=== PATIENT | female | born 1970 | race Two or more races ===

== ENCOUNTER 2022-06-06 10:00 | Inpatient (IN) | payer OTHER ==
[2022-06-27] MEDS ORDERED: [UNRECOGNIZED DRUG - OTHER] PO (10:20)
[2022-06-27] MEDS ORDERED: ALDACTONE25 MG PO (10:20)
[2022-06-27] MEDS ORDERED: WELLBUTRIN XL300 MG PO (10:21)
[2022-06-27] MEDS ORDERED: SEROQ PO (10:22)
[2022-06-27] MEDS ORDERED: [UNRECOGNIZED DRUG - OTHER] PO (10:22)
[2022-06-27] MEDS ORDERED: SYNTH PO (10:22)
[2022-06-27] MEDS ORDERED: ZYRTEC10 M3 PO (10:23)
[2022-06-27] MEDS ORDERED: SINGULAIR10 MG PO (10:23)
[2022-07-01] MEDS ORDERED: ALPRAZOLAM2 MG (08:04)
[2022-07-01] MEDS ORDERED: CLONAZEPAM2 MG (08:04)
[2022-07-01] MEDS ORDERED: SYNTHROID75 MCG (08:04)
[2022-07-01] MEDS ORDERED: FUROSEMIDE40 MG (08:04)
[2022-07-01] MEDS ORDERED: ENALAPRIL MALE2.5 MG (08:04)
[2022-07-01] MEDS ORDERED: METOPROLOL SUC200 MG (08:04)
[2022-07-01] MEDS ORDERED: XARELTO10 M1 (08:05)
[2022-07-01] MEDS ORDERED: PANTOPRAZOLE SO40 MG (08:05)
[2022-07-01] MEDS ORDERED: IBUPROFEN800 MG (08:05)
[2022-07-01] MEDS ORDERED: DICLOFENAC SOD100 GM (08:05)
[2022-07-01] MEDS ORDERED: QUETIAPINE FUM150 MG (08:05)
[2022-07-01] MEDS ORDERED: OMEPRAZOLE40 MG (08:05)
[2022-07-08] MEDS ORDERED: ULTRACET PO (09:27)
== END 2022-07-08 15:23 | disposition home or self-care (01) | DRG 329 ==
LOC: O/R 07-01 05:30 → SURG 07-01 05:30 → SURH 07-01 16:44 → SURG 07-01 16:50
PROVIDERS: ADMIT Surgery; ATTEND Surgery
PROC: 0DBP4ZZ Excision of Rectum, Percutaneous Endoscopic Approach (ICD-10-PCS; 2022-07-01)
PROC: 0DTN4ZZ Resection of Sigmoid Colon, Percutaneous Endoscopic Approach (ICD-10-PCS; 2022-07-01)
PROC: 07BB4ZZ Excision of Mesenteric Lymphatic, Percutaneous Endoscopic Approach (ICD-10-PCS; 2022-07-01)
PROC: 0DJD8ZZ Inspection of Lower Intestinal Tract, Via Natural or Artificial Opening Endoscopic (ICD-10-PCS; 2022-07-01)
PROC: 4A12X4Z Monitoring of Cardiac Electrical Activity, External Approach (ICD-10-PCS; 2022-07-01)
PROC: 0D1B4Z4 Bypass Ileum to Cutaneous, Percutaneous Endoscopic Approach (ICD-10-PCS; principal; 2022-07-01 08:15)
PROC: B24BZZZ Ultrasonography of Heart with Aorta (ICD-10-PCS; 2022-07-03)
PROC: B54DZZZ Ultrasonography of Bilateral Lower Extremity Veins (ICD-10-PCS; 2022-07-03)
DX: C20 Malignant neoplasm of rectum (principal); T81.19XA Other postprocedural shock, initial encounter; K62.5 Hemorrhage of anus and rectum; D62 Acute posthemorrhagic anemia; R59.0 Localized enlarged lymph nodes; D69.6 Thrombocytopenia, unspecified; Z20.822 Contact with and (suspected) exposure to COVID-19; I11.0 Hypertensive heart disease with heart failure; I50.9 Heart failure, unspecified; Z86.711 Personal history of pulmonary embolism; Z95.810 Presence of automatic (implantable) cardiac defibrillator

== ENCOUNTER 2022-07-15 12:36 | Inpatient (IN) | payer OTHER ==
[~2022-07-15] VITALS: Ht 152.4 cm; Wt 117.9 kg
[~2022-07-15 12:36] MED LIST: ALDACTONE25 MG PO; ALPRAZOLAM2 MG; CLONAZEPAM2 MG; DICLOFENAC SOD100 GM; ENALAPRIL MALE2.5 MG; FUROSEMIDE40 MG; IBUPROFEN800 MG; METOPROLOL SUC200 MG; OMEPRAZOLE40 MG; PANTOPRAZOLE SO40 MG; QUETIAPINE FUM150 MG; SEROQ PO; SINGULAIR10 MG PO; SYNTH PO; SYNTHROID75 MCG; ULTRACET PO; WELLBUTRIN XL300 MG PO; XARELTO10 M1; ZYRTEC10 M3 PO; [UNRECOGNIZED DRUG - OTHER] PO; [UNRECOGNIZED DRUG - OTHER] PO
[2022-08-09] MEDS ORDERED: LOPERAMIDE2 M1 PO (16:55)
== END 2022-08-09 21:37 | disposition home or self-care (01) | DRG 871 ==
LOC: ER 12:36 → ICU-2 21:42 → ICU 07-16 04:07 → MEDI 07-20 14:38
PROVIDERS: ADMIT Surgery; ATTEND Surgery
PROC: 0BH17EZ Insertion of Endotracheal Airway into Trachea, Via Natural or Artificial Opening (ICD-10-PCS; principal; 2022-07-15)
PROC: 5A1945Z Respiratory Ventilation, 24-96 Consecutive Hours (ICD-10-PCS; 2022-07-15)
PROC: 4A12X4Z Monitoring of Cardiac Electrical Activity, External Approach (ICD-10-PCS; 2022-07-15)
PROC: 0D9670Z Drainage of Stomach with Drainage Device, Via Natural or Artificial Opening (ICD-10-PCS; 2022-07-15)
PROC: B020ZZZ Computerized Tomography (CT Scan) of Brain (ICD-10-PCS; 2022-07-15)
PROC: B24BYZZ Ultrasonography of Heart with Aorta using Other Contrast (ICD-10-PCS; 2022-07-15)
PROC: 02HV33Z Insertion of Infusion Device into Superior Vena Cava, Percutaneous Approach (ICD-10-PCS; 2022-07-16)
PROC: BW2110Z Computerized Tomography (CT Scan) of Abdomen and Pelvis using Low Osmolar Contrast, Unenhanced and Enhanced (ICD-10-PCS; 2022-07-18)
PROC: 30243N1 Transfusion of Nonautologous Red Blood Cells into Central Vein, Percutaneous Approach (ICD-10-PCS; 2022-07-26)
PROC: 8E0ZXY6 Isolation (ICD-10-PCS; 2022-07-31)
DX: A41.9 Sepsis, unspecified organism (principal); J96.00 Acute respiratory failure, unspecified whether with hypoxia or hypercapnia; R65.21 Severe sepsis with septic shock; R57.1 Hypovolemic shock; N39.0 Urinary tract infection, site not specified; I13.0 Hypertensive heart and chronic kidney disease with heart failure and stage 1 through stage 4 chronic kidney disease, or unspecified chronic kidney disease; C19 Malignant neoplasm of rectosigmoid junction; K94.13 Enterostomy malfunction; I50.22 Chronic systolic (congestive) heart failure; I43 Cardiomyopathy in diseases classified elsewhere; N17.9 Acute kidney failure, unspecified; Z16.12 Extended spectrum beta lactamase (ESBL) resistance; B96.1 Klebsiella pneumoniae [K. pneumoniae] as the cause of diseases classified elsewhere; I95.9 Hypotension, unspecified; D64.9 Anemia, unspecified; R33.9 Retention of urine, unspecified; E03.9 Hypothyroidism, unspecified; Z95.810 Presence of automatic (implantable) cardiac defibrillator; R53.81 Other malaise

== ENCOUNTER 2023-09-29 06:15 | Day surgery (SDC) | payer OTHER ==
[2023-09-12 08:53] LABS: HEMOGLOBIN 13.7 g/dL (12.0-15.00); MEAN CELL VOLUME 92.2 fL (80.00-100.00); MEAN CORPUSCULAR HEMOGLOBIN 31.6 pg (27.00-32.0); MEAN CORPUSCULAR HGB CONC 34.3 g/dl (32.0-36.0); PLATELET COUNT 194 K/uL (150-450); RED BLOOD COUNT 4.33 M/uL (4.00-6.00); RED CELL DISTRIBUTION WIDTH 16.5 % (11.5-14.5)
[2023-09-12 09:36] LABS: CALCIUM 9.4 mg/dL (8.5-10.1); CREATININE SERUM 1.14 mg/dL (0.55-1.02); GFR 50.05; POTASSIUM 3.97 mEq/L (3.5-5.1)
[~2023-09-29 06:15] MED LIST changes: +LOPERAMIDE2 M1 PO
== END 2023-09-29 12:10 | disposition home or self-care (01) ==
LOC: AMB-ENDOS 06:15
PROVIDERS: ATTEND Surgery
DX: C20 Malignant neoplasm of rectum (principal); K62.5 Hemorrhage of anus and rectum; Z88.0 Allergy status to penicillin; Z88.6 Allergy status to analgesic agent; Z20.822 Contact with and (suspected) exposure to COVID-19; K64.8 Other hemorrhoids

== ENCOUNTER 2023-10-23 07:45 | Inpatient (IN) | payer OTHER ==
[~2023-10-23] VITALS: Ht 165.1 cm; Wt 111.1 kg
[2023-10-23 08:54] LABS: HEMATOCRIT 41.5 % (36.0-45.00); HEMOGLOBIN 13.9 g/dL (12.0-15.00); MEAN CELL VOLUME 89.5 fL (80.00-100.00); MEAN CORPUSCULAR HEMOGLOBIN 29.9 pg (27.00-32.0); MEAN CORPUSCULAR HGB CONC 33.4 g/dl (32.0-36.0); PLATELET COUNT 219 K/uL (150-450); RED BLOOD COUNT 4.64 M/uL (4.00-6.00); RED CELL DISTRIBUTION WIDTH 14.9 % (11.5-14.5)
[2023-10-23 08:55] LABS: URINE APPEARANCE Cloudy; URINE BILIRRUBIN Negative (NEGATIVE); URINE BLOOD Negative; URINE COLOR Yellow; URINE GLUCOSE Negative (NEGATIVE); URINE LEUKOCYTE Trace; URINE NITRATE Negative; URINE PROTEIN Trace (NEGATIVE); URINE UROBILINOGEN 0.2 E.U./dl
[2023-10-23 09:00] LABS: URINE EPITHELIAL CELLS 168.5 uL (0.0-38.8); URINE RBC 22.9 uL (0.0-20.8)
[2023-10-23 09:08] LABS: URINE BACTERIA > 9821.5 uL (0.0-1933)
[2023-10-23 09:22] LABS: INR 1.04; PARTIAL THROMBOPLASTIN TIME 27.6 SECONDS (22.0-34.0); PROTHROMBIN TIME 10.9 SECONDS (9.0-11.5)
[2023-10-23 09:30] LABS: ALBUMIN 4.3 gm/dL (3.4-5.0); BILIRUBIN TOTAL 2.07 mg/dL (0.3-1.2); CALCIUM 9.7 mg/dL (8.5-10.1); CREATININE SERUM 1.11 mg/dL (0.55-1.02); GFR 51.62; GLOBULINA 3.3 G/DL (2.4-3.5); POTASSIUM 3.82 mEq/L (3.5-5.1); TOTAL PROTEIN 7.6 gm/dL (6.4-8.2)
[2023-10-23 09:51] LABS: URINE CRYSTALS MODERATE /HPF
[2023-10-27] MEDS ORDERED: METRONIDAZOLE/SODIUM CHLORIDE 500 MG/100 ML PIGGYBACK IV ONE ×2 (06:47→08:30)
[2023-10-27] MEDS ORDERED: CHLORHEXIDINE GLUCONATE 120 ML BOTTLE TOP ONE ×2 (07:56→08:30)
[2023-10-27] MEDS ORDERED: levoFLOXacin IN DEXTROSE 5 % 5 MG/ML PIGGYBAG IV ONE (08:30)
[2023-10-27] MEDS ORDERED: LIDOCAINE HCL/EPINEPHRINE 20 ML VIAL IJ ONE (08:33)
[2023-10-27] MEDS ORDERED: BUPIVACAINE HCL/PF 0.5% 30ML ML ONE (08:33)
[2023-10-27] MEDS ORDERED: POVIDONE-IODINE 118 ML BOTT TOP ONE (08:47)
[2023-10-27] MEDS ORDERED: LACTOBACILLUS ACIDOPHILUS 1 CAP CAP PO SCH (09:24)
[2023-10-27] MEDS ORDERED: RINGERS SOLUTION,LACTATED 1,000 ML IV SCH (09:30)
[2023-10-27] MEDS ORDERED: ONDANSETRON HCL 2 MG/ML VIAL IV PRN (09:30)
[2023-10-27] MEDS ORDERED: MORPHINE SULFATE 4 MG/ML CARTRIDGE IV PRN (09:30)
[2023-10-27] MEDS ORDERED: HYOSCYAMINE SULFATE 0.125 MG TAB.SUBL SL SCH (13:00)
[2023-10-27] MEDS ORDERED: ALPRAzolam 1 MG TABLET PO SCH (17:00)
[2023-10-27] MEDS ORDERED: MONTELUKAST SODIUM 10 MG TABLET PO SCH (17:00)
[2023-10-27] MEDS ORDERED: ENALAPRIL MALEATE 2.5 MG TABLET PO SCH (17:00)
[2023-10-27] MEDS ORDERED: IPRATROPIUM BROMIDE 0.5 MG/2.5 ML AMPUL.NEB IH SCH (17:00)
[2023-10-27] MEDS ORDERED: METRONIDAZOLE/SODIUM CHLORIDE 500 MG/100 ML PIGGYBACK IV SCH (17:00)
[2023-10-27] MEDS ORDERED: GABAPENTIN 300 MG CAPSULE PO SCH (17:00)
[2023-10-27] MEDS ORDERED: CLONAZEPAM 1 MG TABLET PO SCH (21:00)
[2023-10-27] MEDS ORDERED: CIPROFLOXACIN IN 5 % DEXTROSE 400 MG/200 ML PIGGYBAG IV SCH (21:00)
[2023-10-27] MEDS ORDERED: FAMOTIDINE/PF 20 MG/2 ML VIAL IV PUSH SCH (21:00)
[2023-10-28] MEDS ORDERED: LEVOTHYROXINE SODIUM 75 MCG TABLET PO SCH (06:00)
[2023-10-28 08:57] LABS: ALBUMIN 3.4 gm/dL (3.4-5.0); CREATININE SERUM 0.89 mg/dL (0.55-1.02); GFR 66.6; MAGNESIUM 1.8 mg/dL (1.8-2.4); PHOSPHOROUS 2.9 mg/dL (2.5-4.9); POTASSIUM 3.92 mEq/L (3.5-5.1)
[2023-10-28] MEDS ORDERED: METOPROLOL SUCCINATE 100 MG TAB.SR.24H PO SCH (09:00)
[2023-10-28] MEDS ORDERED: BUPROPION HCL 150 MG TABLET.SA PO SCH (09:00)
[2023-10-28 09:13] LABS: HEMATOCRIT 38.9 % (36.0-45.00); HEMOGLOBIN 13.2 g/dL (12.0-15.00); MEAN CELL VOLUME 88.4 fL (80.00-100.00); MEAN CORPUSCULAR HEMOGLOBIN 30.1 pg (27.00-32.0); PLATELET COUNT 167 K/uL (150-450); RED CELL DISTRIBUTION WIDTH 14.5 % (11.5-14.5)
[2023-10-28] MEDS ORDERED: ENOXAPARIN SODIUM 40 MG/0.4 ML SYRINGE SUBCUTANEO SCH (17:00)
[2023-10-29 07:28] LABS: HEMATOCRIT 35.8 % (36.0-45.00); HEMOGLOBIN 12.2 g/dL (12.0-15.00); MEAN CELL VOLUME 87.6 fL (80.00-100.00); MEAN CORPUSCULAR HEMOGLOBIN 29.8 pg (27.00-32.0); PLATELET COUNT 160 K/uL (150-450); RED BLOOD COUNT 4.08 M/uL (4.00-6.00); RED CELL DISTRIBUTION WIDTH 14.5 % (11.5-14.5)
[2023-10-29] MEDS ORDERED: ENOXAPARIN SODIUM 40 MG/0.4 ML SYRINGE SUBCUTANEO SCH (09:00)
[2023-10-29 10:06] LABS: CALCIUM 9.4 mg/dL (8.5-10.1); CREATININE SERUM 1.1 mg/dL (0.55-1.02); GFR 52.16; PHOSPHOROUS 2.3 mg/dL (2.5-4.9); POTASSIUM 3.5 mEq/L (3.5-5.1)
[2023-10-29] MEDS ORDERED: POTASSIUM PHOS,M-BASIC-D-BASIC 3 MM/ML VIAL IV NR (10:45)
[2023-10-29] MEDS ORDERED: ENOXAPARIN SODIUM 100 MG/ML SYRINGE SUBCUTANEO SCH (21:00)
[2023-10-30] MEDS ORDERED: MORPHINE SULFATE 4 MG/ML CARTRIDGE IV PRN (01:00)
[2023-10-30 06:19] LABS: HEMATOCRIT 37.9 % (36.0-45.00); MEAN CELL VOLUME 87.7 fL (80.00-100.00); MEAN CORPUSCULAR HGB CONC 34.2 g/dl (32.0-36.0); PLATELET COUNT 195 K/uL (150-450); RED BLOOD COUNT 4.33 M/uL (4.00-6.00); RED CELL DISTRIBUTION WIDTH 14.5 % (11.5-14.5)
[2023-10-30] MEDS ORDERED: BUPIVACAINE HCL/PF 0.5% 5MG/ML VIAL IJ ONE (14:15)
[2023-10-30] MEDS ORDERED: LIDOCAINE HCL 1% 200MG/20ML VIAL IJ ONE (14:30)
[2023-10-30] MEDS ORDERED: NEURONTIN300 MG PO (14:51)
[2023-10-30] MEDS ORDERED: LEVSIN/SL0.125 MG SL (14:51)
[2023-10-30] MEDS ORDERED: INTESTINEX680 M1 PO (14:51)
[2023-10-30] MEDS ORDERED: HIBICLENS118 ML TOP (14:52)
== END 2023-10-30 15:30 | disposition home or self-care (01) | DRG 348 ==
LOC: O/R 10-27 05:50 → SURH 10-27 05:50
PROVIDERS: Internal Medicine Geriatric Medicine; ADMIT Surgery; ATTEND Surgery
PROC: 0WQF4ZZ Repair Abdominal Wall, Percutaneous Endoscopic Approach (ICD-10-PCS; 2023-10-27)
PROC: 4A12X4Z Monitoring of Cardiac Electrical Activity, External Approach (ICD-10-PCS; 2023-10-27)
PROC: 02HV33Z Insertion of Infusion Device into Superior Vena Cava, Percutaneous Approach (ICD-10-PCS; 2023-10-27)
PROC: 0DBB4ZZ Excision of Ileum, Percutaneous Endoscopic Approach (ICD-10-PCS; principal; 2023-10-27 10:45)
DX: C20 Malignant neoplasm of rectum (principal); I50.20 Unspecified systolic (congestive) heart failure; K62.5 Hemorrhage of anus and rectum; R49.0 Dysphonia; K43.5 Parastomal hernia without obstruction or gangrene; N73.6 Female pelvic peritoneal adhesions (postinfective); N99.4 Postprocedural pelvic peritoneal adhesions; I11.0 Hypertensive heart disease with heart failure; Z95.810 Presence of automatic (implantable) cardiac defibrillator; E66.01 Morbid (severe) obesity due to excess calories

== ENCOUNTER 2023-11-15 15:11 | Inpatient (IN) | payer OTHER ==
[~2023-11-15] VITALS: Ht 165.1 cm; Wt 102.1 kg
[~2023-11-15 15:11] MED LIST changes: +HIBICLENS118 ML TOP; +INTESTINEX680 M1 PO; +LEVSIN/SL0.125 MG SL; +NEURONTIN300 MG PO
[2023-11-15 15:45] LABS: ABG PH 7.617 (7.35-7.45)
[2023-11-15 15:46] LABS: ABG PO2 115.6 mmHg (80-100); ABG pCO2 14.3 mmHg (35-45); BASE EXCESS -3.4 mmol/l; BICARBONATE 14.2 mmol/l (23-25); SaO2 99.2 %; Tco2 14.7 mmol/l
[2023-11-15 15:49] LABS: o2 21 %; puncture site RADIAL RIGHT
[2023-11-15 15:50] LABS: allen test SATISFACTORY
[2023-11-15 15:50] LABS: HEMATOCRIT 39.4 % (36.0-45.00); HEMOGLOBIN 13.6 g/dL (12.0-15.00); MEAN CELL VOLUME 86.1 fL (80.00-100.00); MEAN CORPUSCULAR HEMOGLOBIN 29.7 pg (27.00-32.0); MEAN CORPUSCULAR HGB CONC 34.5 g/dl (32.0-36.0); PLATELET COUNT 291 K/uL (150-450); RED BLOOD COUNT 4.57 M/uL (4.00-6.00); RED CELL DISTRIBUTION WIDTH 14.3 % (11.5-14.5)
[2023-11-15] MEDS ORDERED: 0.9 % SODIUM CHLORIDE 1,000 ML IV STA (16:04)
[2023-11-15] MEDS ORDERED: BUDESONIDE 0.5 MG/2 ML AMPUL.NEB IH STA (16:07)
[2023-11-15] MEDS ORDERED: LEVALBUTEROL HCL 1.25 MG/3 ML SOLUTION IH SCH ×2 (16:15→21:00)
[2023-11-15] MEDS ORDERED: MAGNESIUM SULFATE 1,000 MG in 0.9 % SODIUM CHLORIDE 50 ML IV ONE (16:15)
[2023-11-15] MEDS ORDERED: FUROsemide 20 MG/2 ML VIAL IV STA (16:20)
[2023-11-15 16:32] LABS: ALBUMIN 4.1 gm/dL (3.4-5.0); ALKALINE PHOSPHATASE 80 U/L (50-136); ALT/SGPT 32 U/L (12-78); ANION GAP 15 (10.0-20.0); AST/SGOT 25 U/L (15-37); BILIRUBIN TOTAL 1.75 mg/dL (0.3-1.2); BLOOD UREA NITROGEN 14 mg/dL (7-18); BUN CREA RATIO 12 (7.0-25.0); CALCIUM 10.1 mg/dL (8.5-10.1); CARBON DIOXIDE 16 mEq/L (21-32); CHLORIDE 112 mmol/L (98-107); CREATININE SERUM 1.17 mg/dL (0.55-1.02); GFR 48.57; GLOBULINA 3.6 G/DL (2.4-3.5); GLUCOSE FASTING 103 mg/dL (65-100); OSMOLALITY SERUM 280 MOSM/KG (275-295); SODIUM 140 mmol/L (136-145); TOTAL PROTEIN 7.7 gm/dL (6.4-8.2)
[2023-11-15 16:38] LABS: C-REACTIVE PROTEIN < 0.29 MG/DL (0.00-0.29)
[2023-11-15 16:42] LABS: URINE APPEARANCE Cloudy; URINE BILIRRUBIN Negative (NEGATIVE); URINE BLOOD Negative; URINE COLOR Yellow; URINE GLUCOSE Negative (NEGATIVE); URINE LEUKOCYTE Trace; URINE NITRATE Negative; URINE PROTEIN Trace (NEGATIVE)
[2023-11-15 16:46] LABS: URINE BACTERIA 8683.4 uL (0.0-1933); URINE EPITHELIAL CELLS 72.3 uL (0.0-38.8); URINE WBC 34.4 uL (0.0-23.2)
[2023-11-15] MEDS ORDERED: SODIUM BICARBONATE 1 MEQ/ML DISP.SYRIN 50ML IV ONE (18:45)
[2023-11-15] MEDS ORDERED: ACETAMINOPHEN 500 MG GEL..CAP PO PRN (19:30)
[2023-11-15] MEDS ORDERED: POTASSIUM CHLORIDE 20MEQ/100ML H2O PB IV ONE (19:30)
[2023-11-15] MEDS ORDERED: RINGERS SOLUTION,LACTATED 1,000 ML IV SCH (19:30)
[2023-11-15] MEDS ORDERED: METRONIDAZOLE/SODIUM CHLORIDE 100 ML IV SCH (19:33)
[2023-11-15 19:38] LABS: ABG PH 7.624 (7.35-7.45); ABG PO2 92.1 mmHg (80-100); ABG pCO2 17.4 mmHg (35-45); BASE EXCESS -0.5 mmol/l; BICARBONATE 17.6 mmol/l (23-25); SaO2 98.6 %; Tco2 18.2 mmol/l
[2023-11-15 19:39] LABS: allen test SATISFACTORY; o2 21 %; puncture site RADIAL RIGHT
[2023-11-15] MEDS ORDERED: ONDANSETRON HCL 4 MG in 0.9 % SODIUM CHLORIDE 50 ML IV PRN (19:45)
[2023-11-15] MEDS ORDERED: ENALAPRILAT DIHYDRATE 1.25 MG/ML VIAL IV PRN (19:45)
[2023-11-15] MEDS ORDERED: IPRATROPIUM BROMIDE 0.5 MG/2.5 ML AMPUL.NEB IH SCH (21:00)
[2023-11-15] MEDS ORDERED: CIPROFLOXACIN IN 5 % DEXTROSE 200 ML IV SCH (21:00)
[2023-11-15 21:21] LABS: INR 1.14; PARTIAL THROMBOPLASTIN TIME 26.2 SECONDS (22.0-34.0); PROTHROMBIN TIME 11.9 SECONDS (9.0-11.5)
[2023-11-15 21:26] LABS: CALCIUM 9.7 mg/dL (8.5-10.1); CREATININE SERUM 1.22 mg/dL (0.55-1.02); GFR 46.28
[2023-11-15 21:29] LABS: POTASSIUM 2.85 mEq/L (3.5-5.1)
[2023-11-15 21:36] LABS: MAGNESIUM 2.1 mg/dL (1.8-2.4)
[2023-11-15 21:45] LABS: PHOSPHOROUS 1.6 mg/dL (2.5-4.9)
[2023-11-15 22:02] LABS: ABG PH 7.668 (7.35-7.45)
[2023-11-15 22:03] LABS: ABG PO2 119.4 mmHg (80-100); ABG pCO2 16.2 mmHg (35-45); BICARBONATE 18.2 mmol/l (23-25); SaO2 99.4 %; Tco2 18.7 mmol/l
[2023-11-15 22:04] LABS: allen test SATISFACTORY; o2 32 %; puncture site RADIAL RIGHT
[2023-11-15] MEDS ORDERED: POTASSIUM PHOS,M-BASIC-D-BASIC 9 MM in 0.9 % SODIUM CHLORIDE 250 ML IV ONE (23:15)
[2023-11-16] MEDS ORDERED: LEVOTHYROXINE SODIUM 75 MCG TABLET PO SCH (06:00)
[2023-11-16] MEDS ORDERED: FAMOTIDINE/PF 20 MG in 0.9 % SODIUM CHLORIDE 8 ML IV PUSH SCH ×2 (09:00→21:00)
[2023-11-16] MEDS ORDERED: CITRIC ACID/SODIUM CITRATE 30 ML BLIST.PACK PO SCH (09:00)
[2023-11-16] MEDS ORDERED: POTASSIUM CHLORIDE IN WATER 40 MEQ/100 ML PIGGYBAG IV SCH (09:00)
[2023-11-16] MEDS ORDERED: RIVAROXABAN 10 MG TAB PO SCH (09:00)
[2023-11-16] MEDS ORDERED: METOPROLOL SUCCINATE 100 MG TAB.SR.24H PO SCH (09:00)
[2023-11-16] MEDS ORDERED: MEROPENEM 500 MG/VIAL VIAL IV SCH (13:00)
[2023-11-16] MEDS ORDERED: VANCOMYCIN HCL 5 MG/ML REDILUIDO IV SCH (17:00)
[2023-11-16] MEDS ORDERED: AA 4.25%/CAL/LYTES/DEXT 5% 1,000 ML PERIFERAL SCH (17:00)
[2023-11-16] MEDS ORDERED: AA 5 %/CALCIUM/LYTES/DEXT 20 % 2,000 ML CENTRAL SCH (17:00)
[2023-11-16] MEDS ORDERED: POTASSIUM CHLORIDE IN 0.9%NACL 1,000 ML IV SCH (17:00)
[2023-11-16 19:51] LABS: CHOL HDL RATIO 2.3 (0-5.0); CREATININE SERUM 1.24 mg/dL (0.55-1.02); GFR 45.42; POTASSIUM 3.51 mEq/L (3.5-5.1)
[2023-11-17] MEDS ORDERED: LEVALBUTEROL HCL 1.25 MG/3 ML SOLUTION IH SCH (06:09)
[2023-11-17 06:59] LABS: HEMATOCRIT 33.4 % (36.0-45.00); HEMOGLOBIN 11.4 g/dL (12.0-15.00); MEAN CELL VOLUME 85.4 fL (80.00-100.00); MEAN CORPUSCULAR HEMOGLOBIN 29.2 pg (27.00-32.0); MEAN CORPUSCULAR HGB CONC 34.2 g/dl (32.0-36.0); PLATELET COUNT 196 K/uL (150-450); RED BLOOD COUNT 3.92 M/uL (4.00-6.00); RED CELL DISTRIBUTION WIDTH 14.7 % (11.5-14.5)
[2023-11-17 07:15] LABS: ALBUMIN 3.3 gm/dL (3.4-5.0); BILIRUBIN TOTAL 1.75 mg/dL (0.3-1.2); CREATININE SERUM 0.92 mg/dL (0.55-1.02); GFR 64.1; GLOBULINA 2.4 G/DL (2.4-3.5); MAGNESIUM 1.9 mg/dL (1.8-2.4); PHOSPHOROUS 3.4 mg/dL (2.5-4.9); POTASSIUM 4.14 mEq/L (3.5-5.1); TOTAL PROTEIN 5.7 gm/dL (6.4-8.2)
[2023-11-17 07:30] LABS: C-REACTIVE PROTEIN 0.35 MG/DL (0.00-0.29)
[2023-11-17] MEDS ORDERED: 0.9 % SODIUM CHLORIDE 10 ML VIAL IJ ONE (07:56)
[2023-11-17] MEDS ORDERED: LORATADINE 10 MG TABLET PO SCH (14:14)
[2023-11-17 15:02] LABS: URINE APPEARANCE Cloudy; URINE BILIRRUBIN Negative (NEGATIVE); URINE BLOOD Large; URINE COLOR Yellow; URINE GLUCOSE Negative (NEGATIVE); URINE LEUKOCYTE Trace; URINE NITRATE Negative; URINE PROTEIN 30 (NEGATIVE)
[2023-11-17 15:06] LABS: URINE BACTERIA 41.5 uL (0.0-1933); URINE EPITHELIAL CELLS 1.5 uL (0.0-38.8); URINE RBC 3053.8 uL (0.0-20.8); URINE WBC 31.2 uL (0.0-23.2)
[2023-11-17] MEDS ORDERED: CLONAZEPAM 1 MG TABLET PO SCH (17:00)
[2023-11-17] MEDS ORDERED: ENALAPRIL MALEATE 20 MG TABLET PO SCH (17:00)
[2023-11-17] MEDS ORDERED: MONTELUKAST SODIUM 10 MG TABLET PO SCH (17:00)
[2023-11-17] MEDS ORDERED: LACTOBACILLUS ACIDOPHILUS 1 CAP CAP PO SCH (17:00)
[2023-11-17] MEDS ORDERED: RINGERS SOLUTION,LACTATED 1,000 ML IV SCH (17:15)
[2023-11-18] MEDS ORDERED: METOPROLOL SUCCINATE 100 MG TAB.SR.24H PO SCH (09:00)
[2023-11-18] MEDS ORDERED: SODIUM HYPOCHLORITE 1OZ TOP SCH (13:09)
[2023-11-19] MEDS ORDERED: LEVALBUTEROL HCL 0.63 MG/3 ML SOLUTION IH SCH (09:00)
[2023-11-19 14:08] LABS: ABG PO2 125.6 mmHg (80-100); ABG pCO2 28.8 mmHg (35-45); BASE EXCESS -1.2 mmol/l; BICARBONATE 20.9 mmol/l (23-25); SaO2 99.1 %; Tco2 21.8 mmol/l; o2 21 %
[2023-11-19 14:09] LABS: allen test SATISFACTORY; puncture site RADIAL RIGHT
[2023-11-19] MEDS ORDERED: LOPERAMIDE HCL 2 MG CAPSULE PO PRN (14:45)
[2023-11-19] MEDS ORDERED: FAMOTIDINE/PF 20 MG/2 ML VIAL ONE (15:06)
[2023-11-19] MEDS ORDERED: TEMAZEPAM 15 MG CAPSULE PO ONE (15:30)
[2023-11-19] MEDS ORDERED: CHOLESTYRAMINE/ASPARTAME LIGHT 4 G/PKT PACKET PO SCH (17:00)
[2023-11-20 05:31] LABS: HEMATOCRIT 33.4 % (36.0-45.00); HEMOGLOBIN 11.3 g/dL (12.0-15.00); MEAN CELL VOLUME 86.7 fL (80.00-100.00); MEAN CORPUSCULAR HEMOGLOBIN 29.4 pg (27.00-32.0); MEAN CORPUSCULAR HGB CONC 33.9 g/dl (32.0-36.0); PLATELET COUNT 175 K/uL (150-450); RED BLOOD COUNT 3.85 M/uL (4.00-6.00); RED CELL DISTRIBUTION WIDTH 14.6 % (11.5-14.5)
[2023-11-20 05:48] LABS: INR 1.13; PARTIAL THROMBOPLASTIN TIME 28.7 SECONDS (22.0-34.0); PROTHROMBIN TIME 11.8 SECONDS (9.0-11.5)
[2023-11-20 05:57] LABS: ALBUMIN 3.2 gm/dL (3.4-5.0); BILIRUBIN TOTAL 1.45 mg/dL (0.3-1.2); BILIRUBIN,CONJUGATED 0.3 mg/dL (0.0-0.2); BILIRUBIN,UNCONJUGATED 1.15 mg/dL (0.0-0.6); CALCIUM 8.9 mg/dL (8.5-10.1); CHOL HDL RATIO 2.9 (0-5.0); CREATININE SERUM 0.83 mg/dL (0.55-1.02); GFR 72.19; GLOBULINA 2.4 G/DL (2.4-3.5); MAGNESIUM 1.8 mg/dL (1.8-2.4); POTASSIUM 3.79 mEq/L (3.5-5.1); TOTAL PROTEIN 5.6 gm/dL (6.4-8.2)
[2023-11-20 09:27] LABS: UREA CLEARANCE 35.1 ML/MIN
[2023-11-20] MEDS ORDERED: RIVAROXABAN 15 MG TABLET PO SCH (17:00)
[2023-11-20] MEDS ORDERED: HEPARIN SODIUM,PORCINE 500 UNITS/5 ML VIAL IV ONE (17:38)
[2023-11-20] MEDS ORDERED: FAMOtidine 20 MG TABLET PO SCH (21:00)
[2023-11-21] MEDS ORDERED: LOPERAMIDE HCL 2 MG CAPSULE PO PRN (07:29)
[2023-11-21] MEDS ORDERED: CLONAZEPAM 1 MG TABLET PO SCH (21:00)
[2023-11-22] MEDS ORDERED: Cyanocobalamin/Mecobalamin 1 TAB.SL SL SCH (13:22)
[2023-11-22] MEDS ORDERED: SOD FERRIC GLUC COMPLX/SUCROSE 62.5 MG/5 ML AMPUL IV SCH (13:22)
[2023-11-22] MEDS ORDERED: VITAMIN B COMPLEX 1 EACH PO SCH (13:22)
[2023-11-23] MEDS ORDERED: IMODIUM A-D2 MG PO (10:38)
[2023-11-23] MEDS ORDERED: LEVSIN0.125 MG PO (10:38)
== END 2023-11-23 14:17 | disposition home or self-care (01) | DRG 189 ==
LOC: ER 15:11 → ICU 20:13 → ICU-2 20:13 → ICU 11-16 04:50 → SURH 11-17 17:57
PROVIDERS: Emergency Medicine; General Practice; Internal Medicine; Internal Medicine Infectious Disease; ADMIT Surgery; ATTEND Surgery
PROC: BW21ZZZ Computerized Tomography (CT Scan) of Abdomen and Pelvis (ICD-10-PCS; principal; 2023-11-15)
PROC: CB121ZZ Planar Nuclear Medicine Imaging of Lungs and Bronchi using Technetium 99m (Tc-99m) (ICD-10-PCS; 2023-11-16)
PROC: 02HV33Z Insertion of Infusion Device into Superior Vena Cava, Percutaneous Approach (ICD-10-PCS; 2023-11-16)
PROC: 3E0F7GC Introduction of Other Therapeutic Substance into Respiratory Tract, Via Natural or Artificial Opening (ICD-10-PCS; 2023-11-16)
PROC: 4A12X4Z Monitoring of Cardiac Electrical Activity, External Approach (ICD-10-PCS; 2023-11-17)
PROC: BW40ZZZ Ultrasonography of Abdomen (ICD-10-PCS; 2023-11-20)
PROC: B54PZZZ Ultrasonography of Bilateral Upper Extremity Veins (ICD-10-PCS; 2023-11-20)
DX: J96.02 Acute respiratory failure with hypercapnia (principal); A09 Infectious gastroenteritis and colitis, unspecified; C20 Malignant neoplasm of rectum; E87.3 Alkalosis; N39.0 Urinary tract infection, site not specified; I82.612 Acute embolism and thrombosis of superficial veins of left upper extremity; I11.9 Hypertensive heart disease without heart failure; E03.8 Other specified hypothyroidism; E86.0 Dehydration; E87.6 Hypokalemia

== ENCOUNTER 2024-05-23 05:45 | Day surgery (SDC) | payer OTHER ==
[~2024-05-23 05:45] MED LIST changes: +IMODIUM A-D2 MG PO; +LEVSIN0.125 MG PO
[2024-05-23] MEDS ORDERED: DIPHENHYDRAMINE HCL 50 MG/ML VIAL 1ML IV ONE (11:15)
[2024-05-23] MEDS ORDERED: MIDAZOLAM HCL 2 MG/2 ML VIAL IV ONE (11:15)
[2024-05-23] MEDS ORDERED: fentaNYL CITRATE 50 MCG/ML AMPUL IV ONE (11:15)
== END 2024-05-23 12:45 | disposition home or self-care (01) ==
LOC: AMB-ENDOS 05:45
PROVIDERS: ATTEND Surgery
DX: K59.09 Other constipation (principal); K62.5 Hemorrhage of anus and rectum; Z85.048 Personal history of other malignant neoplasm of rectum, rectosigmoid junction, and anus; Z88.6 Allergy status to analgesic agent; Z88.1 Allergy status to other antibiotic agents; Z88.0 Allergy status to penicillin

== ENCOUNTER 2025-06-03 07:08 | Outpatient (CLI) | payer OTHER | END 2025-06-03 07:09 | disposition home or self-care (01) | LOC: NUCLEAR 07:08 | PROVIDERS: ATTEND Internal Medicine | DX: I20.1 Angina pectoris with documented spasm (principal) | CPT/HCPCS: 78452; 93017; A9500 ==

== ENCOUNTER 2025-06-05 08:00 | Outpatient (CLI) | payer OTHER ==
[~2025-06-05] VITALS: Ht 165.1 cm; Wt 108.0 kg
[2025-06-05 09:25] LABS: URINE APPEARANCE Cloudy; URINE BILIRRUBIN Negative (NEGATIVE); URINE BLOOD Negative; URINE COLOR Yellow; URINE GLUCOSE Negative (NEGATIVE); URINE KETONE Trace (NEGATIVE); URINE LEUKOCYTE Negative; URINE NITRATE Negative; URINE PROTEIN Negative (NEGATIVE); URINE UROBILINOGEN 0.2 E.U./dl
[2025-06-05 09:28] LABS: BASO % 0.2 % (0.1-1.2); EOS # 0.12 (0.04-0.54); EOS % 2.4 % (0.7-7.0); LYMPH # 1.08 (1.18-3.74); LYMPH % 22.0 % (19.3-53.1); MEAN PLATELET VOLUME 10.10 fl (9.4-12.4); MONO # 0.36 (0.24-0.82); MONO % 7.3 % (4.7-12.5); NEUT # 3.33 (1.56-6.13); NEUT % 67.7 % (34.0-71.1); RED CELL DISTRIBUTION WIDTH 14.1 % (11.6-14.4)
[2025-06-05 09:29] LABS: URINE BACTERIA 1461.4 uL (0.0-1933); URINE EPITHELIAL CELLS 129.3 uL (0.0-38.8); URINE RBC 17.7 uL (0.0-20.8); URINE WBC 25.8 uL (0.0-23.2)
[2025-06-05 09:48] VITALS: BP 120/85
[2025-06-05] MEDS ORDERED: TOPROL XL200 MG (09:56)
[2025-06-05] MEDS ORDERED: LIPITOR40 MG PO (09:56)
[2025-06-05] MEDS ORDERED: SEROQUEL 100MG (09:57)
[2025-06-05 09:59] LABS: INR 1.06
[2025-06-05 10:27] LABS: URINE CAST 0.14 uL (0.0-1.40)
[2025-06-05 10:30] LABS: ALT/SGPT 22.0 U/L (12-78); AST/SGOT 18.0 U/L (15-37); BILIRUBIN TOTAL 1.02 mg/dL (0.3-1.2); BUN CREA RATIO 15.0 (7.0-25.0); CREATININE SERUM 1.14 mg/dL (0.55-1.02); GFR 49.67; GLOBULINA 3.1 G/DL (2.4-3.5); GLUCOSE FASTING 94.0 mg/dL (65-100); OSMOLALITY SERUM 286.0 MOSM/KG (275-295)
[2025-06-06] MEDS ORDERED: CIPROFLOXACIN IN 5 % DEXTROSE 400 MG/200 ML PIGGYBAG IV SCH (10:15)
== END 2025-06-05 08:15 | disposition home or self-care (01) ==
LOC: RAD 08:00 → ADM 09:15 → CIR.AMB 06-09 07:00 → EDSTATUS 06-09 09:15 → CIR.AMB 06-09 09:15
PROVIDERS: ATTEND Surgery
DX: K43.9 Ventral hernia without obstruction or gangrene (principal)

== ENCOUNTER → 2025-08-27 | Day surgery (SDC) | payer OTHER ==
[2025-08-22 09:21] VITALS: BP 122/78
[2025-08-22 09:23] LABS: URINE APPEARANCE Cloudy; URINE BILIRRUBIN Small (NEGATIVE); URINE BLOOD Negative; URINE COLOR Dark Yellow; URINE GLUCOSE Negative (NEGATIVE); URINE KETONE Trace (NEGATIVE); URINE LEUKOCYTE Trace; URINE NITRATE Negative; URINE PROTEIN Trace (NEGATIVE); URINE UROBILINOGEN 0.2 E.U./dl
[2025-08-22 09:25] LABS: BASO % 0.2 % (0.1-1.2); EOS # 0.20 (0.04-0.54); EOS % 3.5 % (0.7-7.0); LYMPH # 1.09 (1.18-3.74); LYMPH % 19.0 % (19.3-53.1); MEAN PLATELET VOLUME 10.10 fl (9.4-12.4); MONO # 0.48 (0.24-0.82); MONO % 8.3 % (4.7-12.5); NEUT # 3.96 (1.56-6.13); NEUT % 68.8 % (34.0-71.1); RED CELL DISTRIBUTION WIDTH 13.7 % (11.6-14.4)
[2025-08-22 09:27] LABS: URINE BACTERIA 5195.7 uL (0.0-1933); URINE RBC 40.9 uL (0.0-20.8); URINE WBC 30.6 uL (0.0-23.2)
[2025-08-22 09:42] LABS: INR 1.07; URINE EPITHELIAL CELLS > 201.7 uL (0.0-38.8)
[2025-08-22 09:43] LABS: URINE CAST 0.28 uL (0.0-1.40)
[2025-08-22 09:44] LABS: URINE CRYSTALS MODERATE /HPF
[2025-08-22 10:05] LABS: ALT/SGPT 23.0 U/L (12-78); AST/SGOT 13.0 U/L (15-37); BILIRUBIN TOTAL 1.0 mg/dL (0.3-1.2); BUN CREA RATIO 17.0 (7.0-25.0); CREATININE SERUM 1.13 mg/dL (0.55-1.02); GFR 50.18; GLOBULINA 3.2 G/DL (2.4-3.5); GLUCOSE FASTING 107.0 mg/dL (65-100); OSMOLALITY SERUM 290.0 MOSM/KG (275-295)
[~2025-08-27] VITALS: Ht 165.1 cm; Wt 120.2 kg
[~2025-08-27] MED LIST changes: +BUPIVACAINE HCL/MPF 0.5% 30ML VIAL ONE; +CIPROFLOXACIN IN 5 % DEXTROSE 400 MG/200 ML PIGGYBAG IV ONE; +LIDOCAINE HCL 1%/EPINEPHRINE 20ML VIAL IJ ONE; +LIPITOR40 MG PO; +ONDANSETRON HCL 2 MG/ML VIAL IV ONE; +ONDANSETRON HCL 2 MG/ML VIAL ONE; +SEROQUEL 100MG; +SIMETHICONE 125 MG CAPSULE PO ONE; +TOPROL XL200 MG
== END | disposition home or self-care (01) ==
LOC: ADM 08-22 09:15 → CIR.AMB 09:15
PROVIDERS: ATTEND Surgery
DX: K81.1 Chronic cholecystitis (principal); Z88.0 Allergy status to penicillin; Z88.8 Allergy status to other drugs, medicaments and biological substances